=== PATIENT | female | born 1940 | race African-American/Black ===

== ENCOUNTER → 2016-08-19 | Outpatient (CLI) | payer MEDICARE ==
--- NOTE | 2016-08-19 10:07 | RAD ---
Lumbar spine, 5 views, 08/19/2016: History: Low back pain There is a mild left convexity lumbar scoliosis. The lumbar vertebral heights are well-maintained. There are mild scattered marginal spurs. There are moderate degenerative changes involving the facet joints in the mid and lower lumbar spine. There is a minimal associated spondylolisthesis at L3-4, L4-5 and L5-S1. Extensive aortoiliac calcific plaquing is present. IMPRESSION: 1. Moderate multilevel degenerative change. 2. Minimal spondylolisthesis at L3-4, L4-5 and L5-S1 due to facet joint arthropathy. 3. No acute bony abnormality is detected.
--- NOTE | 2016-08-19 10:07 | RAD ---
EXAM: Frontal pelvis with bilateral two-view hip. HISTORY: Bilateral hip pain and low back pain. COMPARISON: None. FINDINGS: There appear to be chronic healed fractures of the left superior and inferior pubic rami. Osteopenia is at least mild. No acute fractures are seen. The joint spaces and alignment of both hips are maintained. There are moderate to severe degenerative changes of the lower lumbar spine. 2 skin petey project inferior to the pubic symphysis. Correlate clinically. Atherosclerotic calcifications are noted. IMPRESSION: 1. Osteopenia. No fracture or degenerative change at the hips.
== END | disposition home or self-care (01) ==
LOC: RAD 09:08
PROVIDERS: ATTEND Family Medicine
DX: M54.16 Radiculopathy, lumbar region (principal); M43.16 Spondylolisthesis, lumbar region
CPT/HCPCS: 72110; 73521

== ENCOUNTER → 2019-07-12 | Day surgery (SDC) | payer BC ==
[~2019-07-12] MED LIST: AMLO5TAB10 PO; CYCL10TA2 PO; IV RINGERS,LACTATED 1000ML 1,000 ML IV SCH; LIDOCAINE 2% PF 5 ML VIAL. ONE; PROPOFOL 40 ML IV ONE
[2019-07-12 12:36] VITALS: BP 116/68
== END | disposition home or self-care (01) ==
LOC: ENDOS 10:33
PROVIDERS: ATTEND Internal Medicine Gastroenterology
DX: R19.5 Other fecal abnormalities (principal); K64.0 First degree hemorrhoids; D64.9 Anemia, unspecified; M19.90 Unspecified osteoarthritis, unspecified site; J43.9 Emphysema, unspecified; I10 Essential (primary) hypertension; Z82.49 Family history of ischemic heart disease and other diseases of the circulatory system; Z79.899 Other long term (current) drug therapy; Z88.0 Allergy status to penicillin; Z86.010 Personal history of colon polyps; Z88.6 Allergy status to analgesic agent; Z88.1 Allergy status to other antibiotic agents; Z91.040 Latex allergy status; Z87.891 Personal history of nicotine dependence
CPT/HCPCS: 45378; J2001; J2704

== ENCOUNTER 2020-08-26 14:23 | Emergency (ER) | payer BC ==
[~2020-08-26] VITALS: Ht 170.2 cm; Wt 81.8 kg
[~2020-08-26 14:23] MED LIST changes: +AMLO-186 PO; -AMLO5TAB10 PO; -IV RINGERS,LACTATED 1000ML 1,000 ML IV SCH; -LIDOCAINE 2% PF 5 ML VIAL. ONE; -PROPOFOL 40 ML IV ONE
--- NOTE | 2020-08-26 15:56 | RAD ---
INDICATION: Reason: bl calf pain / Spl. Instructions: / History: COMPARISON: None. TECHNIQUE: Grayscale, color and doppler ultrasound images were obtained of the bilateral lower extrem ity venous vasculature. RIGHT: No thrombus identified in the common femoral vein, femoral vein, popliteal vein or visualized calf ve ins. LEFT: No thrombus identified in the common femoral vein, femoral vein, popliteal vein or visualized calf ve ins. IMPRESSION: * No thrombus identified in deep venous system of bilateral lower extremities. Electronically signed by: Obinna Fair MD (08/26/2020 3:54 PM) [id number]
--- NOTE | 2020-08-26 16:10 | EKG ---
[facility] [address] [place] [address] Test Date: 2020-08-26 Test Time: 16:05:50 Pat Name: REESE LANDAVERDE Department: Room: Gender: F Java Programmer: : 1940 Requested By: ELOISA MORSE Order Number: [id number] Reading MD: Measurements Intervals [place] Rate: 76 P: 52 MN: 188 QRS: 1 QRSD: 80 T: 34 QT: 412 QTc: 468 Interpretive Statements SINUS RHYTHM NORMAL ECG RI6.02 No previous ECG available for comparison
--- NOTE | 2020-08-26 18:12 | PHYS DOC ---
Past Medical History Past Medical History: Hypertension Past Surgical History: No Surgical History Smoking Status: Never Smoker Alcohol Use: None General Adult EDM: Chief Complaint: LOWER EXT PAIN HPI: HPI: 79-year-old female Review of Systems: Review of Systems: Constitutional: Denies fever or chills. [] Eyes: Denies change in visual acuity. [] HENT: Denies nasal congestion or sore throat. [] Respiratory: Denies cough or shortness of breath. [] Cardiovascular: Denies chest pain or edema. [] GI: Denies abdominal pain, nausea, vomiting, bloody stools or diarrhea. [] : Denies dysuria. [] Musculoskeletal: Denies back pain or joint pain. [] Integument: Denies rash. [] Neurologic: Denies headache, focal weakness or sensory changes. [] Endocrine: Denies polyuria or polydipsia. [] Lymphatic: Denies swollen glands. [] Psychiatric: Denies depression or anxiety. [] Heart Score: C/O Chest Pain: No Risk Factors: Risk Factors: DM, Current or recent (<one month) smoker, HTN, HLP, family history of CAD, obesity. Risk Scores: Score 0 - 3: 2.5% MACE over next 6 weeks - Discharge Home Score 4 - 6: 20.3% MACE over next 6 weeks - Admit for Clinical Observation Score 7 - 10: 72.7% MACE over next 6 weeks - Early Invasive Strategies Allergies: Allergies: Allergies Coded Allergies Type Severity Reaction Last Updated Verified Penicillins Allergy Intermediate rash 07/12/19 Yes ciprofloxacin Allergy Intermediate 07/12/19 Yes clindamycin Allergy Intermediate sob 07/12/19 Yes hydrochlorothiazide Allergy Intermediate bleeding welts 07/12/19 Yes irbesartan Allergy Intermediate bleeding welts 07/12/19 Yes latex Allergy Intermediate 07/12/19 Yes levofloxacin Allergy Intermediate bleeding, welts 07/12/19 Yes Physical Exam: PE: Constitutional: Well developed, well nourished, no acute distress, non-toxic appearance. HENT: Normocephalic, atraumatic, Eyes: EOMI, conjunctiva normal, no discharge. Neck: Normal range of motion, supple, Cardiovascular: S1/2 present, regular rhythm Lungs & Thorax: Speaking in full sentences, bilateral equal chest rise, no tachypnea or increased work of breathing Abdomen: soft, no tenderness, Skin: Warm, dry, no erythema, no rash. [] Back: No tenderness, no CVA tenderness. [] Extremities: No tenderness, no cyanosis, no lower extremity edema Neurologic: Alert and oriented X 3, normal motor function, normal sensory functi on, no focal deficits noted. [] Psychologic: Affect normal, judgement normal, mood normal. [] Current Patient Data: Vital Signs: Vital Signs Date Time Temp Pulse Resp B/P (MAP) Pulse Ox O2 Delivery O2 Flow Rate FiO2 08/26/20 16:47 70 13 169/79 (109) 98 Room Air 08/26/20 14:53 98.4 98.4 EKG: EKG: Sinus rhythm at 76 bpm, no axis deviation, QTC 468, no ST elevations or ST depressions, no active chest pain Radiology/Procedures: Radiology/Procedures: IMAGING REPORT Signed PATIENT: REESE LANDAVERDE ACCOUNT: [id number] : 1940 LOCATION: ER AGE: 79 SEX: F EXAM STATUS: REG ER ORD. PHYSICIAN: ELOISA MORSE DO REASON: bl calve pain PROCEDURE: VENOUS LOWER EXT BILATERAL INDICATION: Reason: bl calf pain / Spl. Instructions: / History: COMPARISON: None. TECHNIQUE: Grayscale, color and doppler ultrasound images were obtained of the bilateral lower extremity venous vasculature. RIGHT: No thrombus identified in the common femoral vein, femoral vein, popliteal vein or visualized calf veins. LEFT: No thrombus identified in the common femoral vein, femoral vein, popliteal vein or visualized calf veins. IMPRESSION: * No thrombus identified in deep venous system of bilateral lower extremities. Electronically signed by: Bonnie Carrillo MD (08/26/2020 3:54 PM) [id number] DICTATED and SIGNED BY: BONNIE CARRILLO MD DATE: 08/26/20 [id number] 0 Course & Med Decision Making: Course & Med Decision Making Pertinent Labs and Imaging studies reviewed. (See chart for details) Turn for asymptomatic hypertension. DVT study with no lower extremity DVT-which is consistent for typical presentation of patient's physical exam. May repeat in 1 week if symptoms should persist. Will discharge home with strict ED return precautions were given for hemoptysis, unilateral leg swelling, worsening pain or neurologic deficits. Encouraged urgent outpatient follow-up with PMD. Life- threatening processes were considered but are low suspicion at this time, given history, physical exam and ED workup. Pt was educated on all prescription medications and adverse effects. All patient's questions were answered and pt was stable at time of discharge. Life/limb-threatening differential includes but is not limited to, trauma (fracture, dislocation, laceration, compartment syndrome, tendon or ligament injury), neurovascular injury or deficit, infection (osteomyelitis, abscess, cellulitis, septic arthritis, necrotizing fasciitis), deep vein thrombosis, renal/cardiac/liver disease, medication adverse effect, lymphedema/anasarca, vascular insufficiency or malignancy, I spoken with the patient and her caregivers. I explained the patient's condition, diagnoses and treatment plan based on the information available to me at this time. I have answered the patient and her caregiver's questions and addressed any concerns. The patient and her caregivers have a good understanding of patient's diagnosis, condition and treatment plan as can be expected at this point. Vital signs have been stable. Patient's condition is stable and appropriate for discharge from the emergency department. Patient will pursue further outpatient evaluation with primary care physician or other designated or consulting physician as outlined in the discharge instructions. The patient and/or caregivers are agreeable to this plan of care and follow-up instructions have been explained in detail. The patient and/or caregivers have received these instructions in written form and have expressed an understanding of the discharge instructions. The patient and/or caregivers are aware that any significant change of condition or worsening of symptoms should prompt immediate return to this or the closest emergency department or call to 911. Yury Disclaimer: Yury Disclaimer: This electronic medical record was generated, in whole or in part, using a voice recognition dictation system. Departure Departure Impression: Primary Impression: Bilateral lower extremity pain Disposition: 01 DC HOME SELF CARE/HOMELESS Condition: STABLE Referrals: Bethanie ARZATE MD (PCP) Within 1 week Patient Instructions: Leg Cramps, Peripheral Edema Additional Instructions: EMERGENCY DEPARTMENT GENERAL DISCHARGE INSTRUCTIONS Thank you for coming to [facility] Emergency Department (ED) today and trusting us with you care. We trust that you had a positive experience in our Emergency Department. If you wish to speak to the department management, you may call the Director at [phone]. YOUR FOLLOW UP INSTRUCTIONS ARE FOLLOWS: 1. Do you have a private Doctor? If you do not have a private doctor, please ask for a resource list of physicians or clinics that may be able to assist you with follow up care. 2. The Emergency Physicain has interpreted your x-rays. The X-Ray specialist will also review them. If there is a change in the findings, you will be notified in 48 hours when at all possible. 3. A lab test or culture has been done, your results will be reviewed and you will be notified if you need a change in treatment. ADDITIONAL INSTRUCTIONS AND INFORMATION: 1. Your care today has been supervised by a physician who is specially trained in emergency care. Many problems require more than one evaluation for a complete diagnosis and treatment. We recommend that you schedule your follow up appointment as recommended to ensure complete treatment of you illness or injury. If you are unable to obtain follow up care and continue to have a problem, or if your condition worsens, we recommend that you return to the ED. 2. We are not able to safely determine your condition over the phone nor are we able to give sound medical advice over the phone. For these safety reasons, if you call for medical advice we will ask you to come to the ED for further evaluation. 3. If you have any questions regarding these discharge instructions please call the ED at [phone]. SAFETY INFORMATION: In the interest of safety, wellness, and injury prevention; we encourage you to wear your sealbelt, if you smoke; quite smoking, and we encourage family to use a protective helmet for bicycling and other sporting events that present an increased risk for head injury. IF YOUR SYMPTOMS WORSEN OR NEW SYMPTOMS DEVELOP, OR YOU HAVE CONCERNS ABOUT YOUR CONDITION; OR IF YOUR CONDITION WORSENS WHILE YOU ARE WAITING FOR YOUR FOLLOW UP APPOINTMENT; EITHER CONTACT YOUR PRIMARY CARE DOCTOR, THE PHYSICIAN WHOSE NAME AND NUMBER YOU WERE GIVEN, OR RETURN TO THE ED IMMEDIATELY. ELOISA MORSE DO Aug 26, 2020 18:12
[2020-08-26 18:17] VITALS: BP 164/74
== END 2020-08-26 19:09 | disposition home or self-care (01) ==
LOC: ER 14:23
DX: M79.605 Pain in left leg (principal); M79.604 Pain in right leg; I10 Essential (primary) hypertension; Z88.0 Allergy status to penicillin; Z88.1 Allergy status to other antibiotic agents; Z91.040 Latex allergy status; Z88.8 Allergy status to other drugs, medicaments and biological substances
CPT/HCPCS: 93005; 93970; 99285-25

== ENCOUNTER → 2020-12-18 | Outpatient (CLI) | payer BC ==
[~2020-12-18] MED LIST changes: +REGADENOSON 0.4 MG/5 ML DISP.SYRIN. IV ONE
--- NOTE | 2020-12-18 21:46 | RAD ---
MR#: [id number] Date of Study: 12/18/2020 Ordering Physician: ERIKA SANTACRUZ, Referring Physician: ODILON CRAIG Tech: RT Rowena (R) (N) APPROVED REPORT Test Type: Pharmacological Stress Nurse/Tech: MINOR JAY Test Indications: CHEST PAIN, PALPITATIONS Cardiac History: HTN, CHEST PAIN, PALPITATIONS- SEE EMR Medications: SEE EMR Medical History: SEE EMR Resting ECG: SR Resting Heart Rate: 63 bpm Resting Blood Pressure: 137/77mmHg Pretest Chest Pain: No chest pain Nurse/Tech Notes S1S2, LUNGS CTA, DENIED CHEST PAIN OR SOA AT THIS TIME. VSS. Consent: The procedure was explained to the patient in lay terms. Informed consent was witnessed. Gamaliel eout was entered into [employer]. History and Stress Test performed by DWAIN Joseph Pharm. Details Pharmacologic stress testing was performed using 0.4mg per 5ml of regadenoson given intravenously ove r 7-10 seconds. Stress Symptoms PT HAD A BRIEF EPISODE OF SHORTNESS OF AIR, RESOLVED QUICKLY. PT DENIED CHEST PAIN, VSS. PT TOLERATED TEST WELL. POST EXERCISE Reason for Termination: Infusion complete Max HR: 103 bpm Max Blood Pressure: 151/81mmHg Blood Pressure response to exercise: Normal blood pressure response during stress. Heart Rate response to exercise: WNL Chest Pain: No. Arrhythmia: No. ST Change: No. NO SIGNIFICANT CHANGES NOTED FROM BASELINE EKG. INTERPRETATION Stress EKG Conclusion: No evidence of stress induced EKG changes. Imaging Protocol IMAGE PROTOCOL: Rest Tc-99m/stress Tc-99m 1 day Rest: Stress: Viability: Radiopharm.Tc99m VpikdhecvCu11p Sestamibi Dose10.5mCi 31mCi Duration 13min. 13min. Img Date 12/18/2020 12/18/2020 Inj-Img Judj12odi. 60min. Rest Admin Site:IV - Left AntecubitalAdministrator:DWAIN Joseph Stress Admin Site: IV - Left AntecubitalAdministrator: Sumanth Bullis, WANT AD SUPERVISOR STRESS DATA End Diast. Vol.67.0mlLVEDV index BSA34.0ml End Syst. Vol.15.0mlLVESV index BSA7.0ml Myocardial Wsio484.0gEject. Xyvbzspc59.0% Stress Scores Regional WT1.00Summed WT5.00 Regional WM0.00Summed WM0.00 The rest and stress images show normal perfusion, normal contraction and thickening. LV Perf. Quant 17 Seg. SSS0.00 17 Seg. SRS0.00 17 Seg. SDS0.00 Stress Defect Extent (% LAD)0.00Rest Defect Extent (% LAD)0.00Rev. Defect Extent (% LAD)0.00 Stress Defect Extent (% LCX) 0.00Rest Defect Extent (% LCX)0.00Rev. Defect Extent (% LCX)0.00 Stress Defect Extent (% RCA)0.00Rest Defect Extent (% RCA)0.00Rev. Defect Extent (% RCA)0.00 Stress Defect Extent (% ROMEO)0.00Rest Defect Extent (% ROMEO)0.00Rev. Defect Extent (% ROMEO)0.00 Other Information Quality:Good Risk Assessment: Low Risk Conclusion 1. No evidence of EKG changes with stress testing. 2. Normal perfusion at stress/rest. 3. Low risk study. 4. EF > 60%. Signed by : Erika Santacruz, Electronically Approved : 12/18/2020 21:46:23
--- NOTE | 2020-12-18 22:06 | CARD ---
MR#: [id number] Date of Study: 12/18/2020 Ordering Physician: ERIKA SHIN, Referring Physician: ERIKA SHIN, Tech: Amanda Sandra, [facility] APPROVED REPORT EXAM: Two-dimensional and M-mode echocardiogram with Doppler and color Doppler. Other Information Quality : AverageHR: 78bpm INDICATION Chest Pain RISK FACTORS Hypertension Previous smoker 2014 2D DIMENSIONS RVDd3.0 (2.9-3.5cm)Left Atrium(2D)2.5 (1.6-4.0cm) IVSd0.9 (0.7-1.1cm)Aortic Root(2D)3.3 (2.0-3.7cm) LVDd4.5 (3.9-5.9cm)LVOT Diameter2.1 (1.8-2.4cm) PWd1.1 (0.7-1.1cm)LVDs2.1 (2.5-4.0cm) FS (%) 52.0 %SV76.4 ml LVEF(%)73.3 (>50%) Aortic Valve AoV Peak Robb.102.9cm/sAoV VTI22.8cm AO Peak GR.4.2mmHgLVOT Peak Robb.71.7cm/s LVOT VTI 16.28cmAO Mean GR.2mmHg REECE (VMAX)1.83ap7YYM (VTI)2.36cm2 Mitral Valve MV E Dqtjrnoy52.5cm/sMV DECEL GXCL648df MV A Zkehsjoy28.6cm/sMV BIQ85fo E/A Ratio0.7MVA (PHT)3.22cm2 TDI E/Lateral E'8.4E/Medial E'9.1 Pulmonary Valve PV Peak Lqpngfyb09.0cm/sPV Peak Grad.2mmHg Tricuspid Valve TR P. Fiuujtjn853np/sRAP KTETNUJG6khTd TR Peak Gr.27peIeEZAT42pdOb Pulmonary Vein S1 Zqofsgcc06.1cm/sD2 Zobomvxp37.5cm/s PVa kaezugca251xoxx LEFT VENTRICLE The left ventricle is normal size. There is borderline concentric left ventricular hypertrophy. The l eft ventricular systolic function is normal and the ejection fraction is within normal range. The Eje ction Fraction is 55-60%. There is normal LV segmental wall motion. Transmitral Doppler flow pattern is Grade I-abnormal relaxation pattern. RIGHT VENTRICLE The right ventricle is normal size. There is normal right ventricular wall thickness. The right ventr icular systolic function is normal. ATRIA The left atrium size is normal. The right atrium size is normal. The interatrial septum is intact wit h no evidence for an atrial septal defect or patent foramen ovale as noted on 2-D or Doppler imaging. AORTIC VALVE The aortic valve is normal in structure and function. Doppler and Color Flow revealed no significant aortic regurgitation. There is no significant aortic valvular stenosis. Calculated aortic valve area is 2.53 cm2 with maximum pressure gradient of 5 mmHg and mean pressure gradient of 3 mmHg. MITRAL VALVE The mitral valve is normal in structure and function. There is no evidence of mitral valve prolapse. There is no mitral valve stenosis. Doppler and Color Flow revealed no mitral valve regurgitation note d. TRICUSPID VALVE The tricuspid valve is normal in structure and function. Doppler and Color Flow revealed trace tricus pid regurgitation with an estimated PAP of 30 mmHg. There is no tricuspid valve stenosis. PULMONIC VALVE The pulmonic valve is not well visualized. Doppler and Color Flow revealed trace pulmonic valvular re gurgitation. There is no pulmonic valvular stenosis. GREAT VESSELS The aortic root is normal in size. The ascending aorta is normal in size. The IVC is normal in size a nd collapses >50% with inspiration. PERICARDIAL EFFUSION There is no evidence of significant pericardial effusion. Critical Notification Critical Value: No <Conclusion> The left ventricular systolic function is normal and the ejection fraction is within normal range. Th e Ejection Fraction is 55-60%. There is normal LV segmental wall motion. Signed by : Erika Shin, Electronically Approved : 12/18/2020 22:05:47
== END ==
LOC: NM 07:41
PROVIDERS: ATTEND Internal Medicine Cardiovascular Disease
DX: I51.7 Cardiomegaly (principal)
CPT/HCPCS: 78452; 93017; 93306; A9500; J2785